=== PATIENT | female | born 1985 | race Two or more races ===

== ENCOUNTER 2019-11-25 01:33 | Emergency (ER) | payer MEDICAID ==
[~2019-11-25] VITALS: Ht 165.1 cm; Wt 155.1 kg
[2019-11-25 03:34] VITALS: BP 148/98
[2019-11-25] MEDS ORDERED: cefTRIAXone W LIDOCAINE 1 GM IM IM ONE (03:45)
[2019-11-25] MEDS ORDERED: cefTRIAXone SOD 1,000 MG VL IM ONE (04:00)
== END 2019-11-25 04:47 | disposition home or self-care (01) ==
LOC: ER 01:40
DX: L03.115 Cellulitis of right lower limb (principal); Z88.5 Allergy status to narcotic agent; Z88.8 Allergy status to other drugs, medicaments and biological substances
CPT/HCPCS: 73502; 82962; 96372; 99283; J0696